=== PATIENT | female | born 1985 | race Caucasian/White ===

== ENCOUNTER 2016-02-23 19:51 | Outpatient (CLI) | payer BC ==
[~2016-02-23] VITALS: Ht 180.3 cm; Wt 78.1 kg
[2016-02-23 20:59] VITALS: Ht 180.3 cm; Wt 78.1 kg
[2016-02-23] MEDS ORDERED: PREN1TAB79 PO (20:59)
[2016-02-23 21:42] VITALS: BP 108/65; PULSE 88; RESP 20
--- NOTE | 2016-02-23 22:10 | RADRPT ---
PROCEDURE: US OB biophysical profile. CLINICAL INDICATION: decreased movements TECHNIQUE: Multiple sonographic images of the pelvis were obtained. The images were reviewed on a PACS workstation. COMPARISON: No pertinent prior examinations were submitted for comparison. FINDINGS: There is a single viable intrauterine gestation. Cardiac activity is present with 146 beats per min [place]. There is a vertex presentation. The placenta is frontal in position, grade 2 in appearance. There is a normal amount of amniotic fluid with an STEVO = 12 cm. The cervix is closed, measuring up to 2.8 cm in length. Biophysical profile: movement 2/2 tone 2/2. breathing 2/2 STEVO 2/2 Total 09/27 IMPRESSION: Normal biophysical profile. RPTAT: HIKT . .Jason Lay MD, Date Time Electronically viewed and signed by .Jason Lay MD, on 02/23/2016 22:09 .T/
--- NOTE | 2016-02-24 05:43 | TRIAGE ---
OB Triage Datetime Report Generated by CPN: 02/24/2016 05:43 Datetime: 02/23/2016 22:30 Stage of : OB Triage Labor Evaluation Frequency: Occasional Monitor Mode: External Duration (sec)2399: 40-70 Quality: Mild Pattern: Normal: <= 5 Contractions in 10 Minutes Resting Tone [place]: Relaxed Heart Rate FHR Baseline Rate: 140 Monitor Mode: External US FHR Baseline Changes: No Baseline Change Variability: Moderate 6-25 bpm Accelerations: 15X15 Decelerations: None Category: Category I Pain Assessment Pain Scale: 0 Pain Presence: None/Denies Pain Type: N/A Pain Assessment Comments: Pt continues to deny pain Datetime: 02/23/2016 22:26 Vaginal Exam Membrane Status: Intact Datetime: 02/23/2016 22:24 Stage of : OB Triage Datetime: 02/23/2016 22:00 Stage of : OB Triage Labor Evaluation Frequency: Occasional Monitor Mode: External Duration (sec)2399: 40-80 Quality: Mild Pattern: Normal: <= 5 Contractions in 10 Minutes Resting Tone [place]: Relaxed Heart Rate FHR Baseline Rate: 140 Monitor Mode: External US Variability: Moderate 6-25 bpm Accelerations: 15X15 Decelerations: None Category: Category I Datetime: 02/23/2016 21:36 Stage of : OB Triage Datetime: 02/23/2016 21:32 Stage of : OB Triage Datetime: 02/23/2016 21:17 Stage of : OB Triage Datetime: 02/23/2016 21:10 Nitrazine: Negative Datetime: 02/23/2016 21:00 Stage of : OB Triage Labor Evaluation Frequency: Occasional Monitor Mode: External Duration (sec)2399: 40-90 Quality: Mild Pattern: Normal: <= 5 Contractions in 10 Minutes Resting Tone [place]: Relaxed Heart Rate FHR Baseline Rate: 135 Monitor Mode: External US Variability: Moderate 6-25 bpm Accelerations: 15X15 Decelerations: None Category: Category I Datetime: 02/23/2016 20:50 Stage of : OB Triage Datetime: 02/23/2016 20:18 EGA: 34.0 Datetime: 02/23/2016 20:17 Stage of : OB Triage Assessment Type: Triage Maternal Assessment Level of Consciousness: Fully Conscious DTR's/Clonus: DTRs 2+; No Clonus Headache: Denies Blurred Vision: No Respiratory Effort: Unlabored; Regular Rhythm; Equal Expansion Breath Sounds, Left: Clear and Equal Breath Sounds, Right: Clear and Equal Nausea/Vomiting: Denies RUQ Epigastric Pain: Denies Lower Extremities Edema: None Degree: None Upper Extremities Edema: None Degree: None Facial Edema: None Temperature Route: Oral Fall Risk Assessment History of Falling: (0) No Secondary Diagnosis: (0) No Ambulatory Aid: (0) Bedrest/Nurse Assist IV Therapy: (0) No Gait: (0) Normal/Bedrest/Immobile Mental Status: (0) Oriented to Own Ability Fall Score: 0 Fall Risk Score Definition: No Risk: No action required Pain Assessment Pain Scale: 0 Pain Presence: None/Denies Pain Type: N/A Pain Assessment Comments: Pt denies pain at this time. Reports pain upto 6/10 with cramping about 1x/hr. Datetime: 02/23/2016 20:10 Stage of : OB Triage Monitor Mode: External Contraction Comments: [place] applied Heart Rate FHR Baseline Rate: 140 Monitor Mode: External US Comments: EFM applied Datetime: 02/23/2016 20:06 Time of Arrival: 02/23/2016 19:45 Arrived By: Ambulatory Arrived From: Home Chief Complaint: Cramping x4 days, leaking x2 days Movement: Present Contractions: Irregular Contractions: 1x/hr Rupture of Membranes: Unsure Vaginal Bleeding: None Vaginal Discharge: Present Recent Sexual Intercouse: Denies Abdominal Trauma: Not Applicable Patient Complaints: Cramping Time Provider Notified: 02/23/2016 20:50 Provider Notified: Initial Plan: EFM x2, nitrazine test
== END 2016-02-23 22:40 | disposition home or self-care (01) ==
LOC: OBT 19:51 → L-D 19:52 → OBT 19:55
PROVIDERS: ATTEND Obstetrics & Gynecology
DX: O26.893 Other specified pregnancy related conditions, third trimester (principal); O62.9 Abnormality of forces of labor, unspecified; O36.8130 Decreased fetal movements, third trimester, not applicable or unspecified; Z3A.34 34 weeks gestation of pregnancy
CPT/HCPCS: 76817; 76818; 84112; G0463

== ENCOUNTER 2016-03-27 23:24 | Inpatient (IN) | payer BC ==
[~2016-03-27] VITALS: Ht 180.3 cm; Wt 78.8 kg
[~2016-03-27 23:24] MED LIST: LACTATED RINGER'S 1,000 ML IV PRN; PREN1TAB79 PO
[2016-03-27 23:54] VITALS: Ht 180.3 cm; Wt 78.8 kg
[2016-03-27 23:55] VITALS: BP 125/78; PULSE 86; RESP 18
[2016-03-27] MEDS: LACTATED RINGER'S 1,000 ML IV SCH (23:57)
[2016-03-28] MEDS ORDERED: ACETAMINOPHEN/CODEINE #3 TAB PO PRN
[2016-03-28] MEDS ORDERED: OXYTOCIN 30 UNITS/LR 500 ML IV SCH ×2
[2016-03-28] MEDS ORDERED: IBUPROFEN 600 MG TAB PO PRN
[2016-03-28] MEDS ORDERED: BUTORPHANOL 2 MG INJ IV PRN ×2
[2016-03-28] MEDS ORDERED: LIDOCAINE 1% (MPF) 30 ML INJ INJ PRN
--- NOTE | 2016-03-28 00:39 | HP ---
Date/Time of Note Date/Time of Note DATE: 03/28/16 TIME: 00:33 OB - History Hx of Present Free Text/Dictation 30 y.o at 38w5d in active labor with intact membrane had unevenful course initial ve 5cm 70% -3 admitted for expectant management Chief Complaint: uterine contractions Estimated Due Date: Apr 05, 2016 : 1 Para: 0 Spontaneous : 0 Therapeutic : 0 Care: Good Care Ultrasounds: Normal mid trimester US Obstetrical Complications: None Medical Complications: None Past Family/Social History * Past Medical, Surgical, Family and Obstetric Histories reviewed from chart. Blood Type: A+ Rubella: immune RPR/VDRL: Negative GBS Status: Negative HBsAG: Negative OB Admission Exam Vital Signs Vital Signs Vital Signs Date Time Temp Pulse Resp B/P Pulse Ox O2 Delivery O2 Flow Rate FiO2 03/27/16 23:55 98.2 86 18 125/78 Room Air Physical Exam HEENT: WNL Heart: Rhythm Normal Lungs: Clear, Equal Abdomen: WNL Extremities: Normal Reflexes: Normal Cervical Dilatation: 5cm Effacement: 75% Station: -3 Membranes: Intact Amniotic Fluid: Unevaluable Heart Rate: 140's Accelerations: Accelerations Present Decelerations: No Decelerations Varibility: Moderate Contractions on Admission: < 5 Minutes Apart Intensity: Moderate OB Assessment/Plan Reason for admission: active labor Other Assessment: IUP 38w5d in active labor Plan: Expectant Management RONAK MARCH MD Mar 28, 2016 00:39
[2016-03-28 01:08] LABS: INR 0.97; PROTIME 12.9 Sec (12.2-14.2)
[2016-03-28 01:18] LABS: BASOPHILS % 0.2 % (0.0-2.0); EOSINOPHILS # 0.1 10^3/ul (0.0-0.5); EOSINOPHILS % 0.7 % (0.0-7.0); HEMOGLOBIN 11.8 g/dl (12.0-16.0); LYMPHOCYTES # 2.2 10^3/ul (0.8-2.9); LYMPHOCYTES % 12.4 % (15.0-51.0); MEAN CORPUSCULAR HEMOGLOBIN 29.7 pg (29.0-33.0); MEAN CORPUSCULAR HGB CONC 33.8 g/dl (32.0-37.0); MEAN CORPUSCULAR VOLUME 87.8 fl (82.0-101.0); MONOCYTE # 1.4 10^3/ul (0.3-0.9); MONOCYTES % 7.9 % (0.0-11.0); NEUTROPHIL # 14.2 10^3/ul (1.6-7.5); NEUTROPHILS % 78.8 % (39.0-77.0); PLATELET COUNT 329 10^3/UL (140-440); RED BLOOD COUNT 3.99 10^6/ul (4.20-5.40); RED CELL DISTRIBUTION WIDTH 14.1 % (11.5-14.5)
[2016-03-28 01:21] LABS: CONDITION 1
[2016-03-28] MEDS ORDERED: AMPICILLIN 2 GM/NS (PMX) 100 ML IVPB ONE (01:30)
[2016-03-28] MEDS ORDERED: FENTAnyl 2MCG/ML-ROPIV 0.2% 100 ML ONE (01:43)
[2016-03-28] MEDS ORDERED: NALOXONE (0.4 MG/ML) INJ IV PRN (02:00)
[2016-03-28] MEDS ORDERED: DIPHENHYDRAMINE 50 MG INJ IV PRN (02:00)
[2016-03-28] MEDS ORDERED: ONDANSETRON 4 MG INJ IV PRN (02:00)
[2016-03-28] MEDS: LACTATED RINGER'S 1,000 ML IV SCH ×6 (04:33→19:42)
[2016-03-28] MEDS ORDERED: AMPICILLIN 1 GM/NS (PMX) 50 ML IVPB SCH (05:00)
[2016-03-28] MEDS: FENTAnyl 2MCG/ML-ROPIV 0.2% 100 ML BAG EPI SCH ×2 (11:36→19:18)
--- NOTE | 2016-03-28 22:12 | LDN ---
Date/Time of Note Date/Time of Note DATE: 03/28/16 TIME: 22:08 Delivery Summary Vacuum assisted vaginal delivery over 5 pulls over one UC. Delivered a viable baby girl weighing 3830 grams or 8# 7 oz, 21" long, and with Apgars of 8/9. Assisted Vaginal Delivery: Vacuum Placenta Delivered: Spontaneously Meconium: none Perineum intact?: No Perineal laceration: 2 (degree) Perineal laceration repair: Second degree perineal laceration repaired with 2-0 chromic. Anesthesia type: Epidural Estimated blood loss: 200 Sponge & Needle done & correct: Yes All needle counts correct: Yes Any foreign bodies felt in the: No (vagina) Problems: Infant Delivery Information Sex Infant Sex: female Apgars 1 Minute: 8 5 Minute: 9 Suctioning Nose & mouth suctioned at mary: Yes Delee suction performed: No Umbilical Cord Umbilical cord with: 3 Vessels Cord presentations: no nuchal cord Cord Blood was obtained: Yes Mother & Baby Disposition Disposition Mom & Baby to Maternity; Good: Yes Baby to NICU: No SCAR CASTELLANOS MD Mar 28, 2016 22:12
[2016-03-28] MEDS ORDERED: MISOPROSTOL 200 MCG TAB PR PRN ×2 (22:30)
[2016-03-28] MEDS ORDERED: ACETAMINOPHEN 325 MG TAB PO PRN (22:30)
[2016-03-28] MEDS ORDERED: WITCH HAZEL/GLYCERIN PAD PR PRN (22:30)
[2016-03-28] MEDS ORDERED: METHYLERGONOVINE 0.2 MG INJ IM PRN ×2 (22:30)
[2016-03-28] MEDS ORDERED: OXYCODONE/ASPIRIN (4.88/325) TAB PO PRN (22:30)
[2016-03-28] MEDS ORDERED: OXYTOCIN 30 UNITS/LR 500 ML IV PRN ×2 (22:30)
[2016-03-28] MEDS ORDERED: LANOLIN 7 GM TUBE TOP PRN (22:30)
[2016-03-28] MEDS ORDERED: CARBOPROST 250 MCG INJ IM PRN ×2 (22:30)
[2016-03-29 00:35] VITALS: BP 120/59; PULSE 105; RESP 19
[2016-03-29] MEDS: IBUPROFEN 600 MG TAB PO SCH ×5 (01:26→23:36)
[2016-03-29] MEDS: LACTATED RINGER'S 1,000 ML IV* SCH ×3 (02:05→14:04)
[2016-03-29 04:00] VITALS: BP 109/66; PULSE 71; RESP 20
[2016-03-29 08:00] VITALS: BP 99/57; PULSE 69; RESP 17
[2016-03-29 08:44] LABS: HEMATOCRIT 27.4 % (37.0-47.0); HEMOGLOBIN 9.3 g/dl (12.0-16.0); MEAN CORPUSCULAR HEMOGLOBIN 30.1 pg (29.0-33.0); MEAN CORPUSCULAR HGB CONC 34.1 g/dl (32.0-37.0); MEAN CORPUSCULAR VOLUME 88.5 fl (82.0-101.0); MEAN PLATELET VOLUME 7.7 fl (7.4-10.4); PLATELET COUNT 243 10^3/UL (140-440); RED CELL DISTRIBUTION WIDTH 14.3 % (11.5-14.5); UNCORRECTED WBC 32.4 10^3/ul (4.8-10.8); WHITE BLOOD COUNT 32.4 10^3/ul (4.8-10.8)
[2016-03-29 09:02] LABS: CONDITION 1; LH ANALYZER COMMENTS 1; SUSPECT 1
[2016-03-29 10:47] LABS: LYMPHOCYTES # 5.5 10^3/ul (0.8-2.9); MONOCYTE # 2.6 10^3/ul (0.3-0.9); NEUTROPHIL # 22.4 10^3/ul (1.6-7.5)
[2016-03-29 12:30] VITALS: BP 119/69; PULSE 92; RESP 18
[2016-03-29 16:00] VITALS: BP 102/66; PULSE 80; RESP 17
[2016-03-29] MEDS ORDERED: DIBUCAINE 1% 30 GM OINT TOP PRN (18:00)
[2016-03-29 20:15] VITALS: BP 115/76; PULSE 75; RESP 20
--- NOTE | 2016-03-29 23:51 | QN ---
Documentation Comment PPD #1 s/p vacuum assisted VD. Pt doing well and in good spirits. Baby is , best when using nipple kamara due to flat nipples. No fever, chills, nausea, vomiting. T= 97.6. BP 102/66. Breast are soft, with slight colostrum. Abdomen soft, NT. Fundus is firm and NT. Lochia moderate. Ext NT, 1+ edema. WBC 32K (was 18K on admit). Bands 6%. Hgb 9.3. Plan: repeat CBC in AM. If WBC persistently high will initiate ABX. Continue assistance with . SCAR CASTELLANOS MD Mar 29, 2016 23:51
[2016-03-30 04:00] VITALS: BP 116/69; PULSE 76; RESP 20
[2016-03-30] MEDS: IBUPROFEN 600 MG TAB PO SCH ×3 (05:50→17:49)
[2016-03-30 08:36] LABS: BASOPHILS % 0.2 % (0.0-2.0); EOSINOPHILS # 0.3 10^3/ul (0.0-0.5); EOSINOPHILS % 1.6 % (0.0-7.0); HEMOGLOBIN 9.1 g/dl (12.0-16.0); LYMPHOCYTES # 2.9 10^3/ul (0.8-2.9); LYMPHOCYTES % 15.8 % (15.0-51.0); MEAN CORPUSCULAR HEMOGLOBIN 29.6 pg (29.0-33.0); MEAN CORPUSCULAR HGB CONC 33.5 g/dl (32.0-37.0); MEAN CORPUSCULAR VOLUME 88.4 fl (82.0-101.0); MEAN PLATELET VOLUME 7.9 fl (7.4-10.4); MONOCYTE # 1.8 10^3/ul (0.3-0.9); MONOCYTES % 9.4 % (0.0-11.0); NEUTROPHIL # 13.6 10^3/ul (1.6-7.5); PLATELET COUNT 250 10^3/UL (140-440); RED BLOOD COUNT 3.05 10^6/ul (4.20-5.40); RED CELL DISTRIBUTION WIDTH 14.6 % (11.5-14.5); UNCORRECTED WBC 18.7 10^3/ul (4.8-10.8); WHITE BLOOD COUNT 18.7 10^3/ul (4.8-10.8)
[2016-03-30 08:40] LABS: CONDITION 1; LH ANALYZER COMMENTS 1
[2016-03-30 08:50] VITALS: BP 117/65; PULSE 74; RESP 18
[2016-03-30] MEDS ORDERED: DIPHTH/TET/ACEL PERTUSS (ADULT) 0.5 ML VIAL IM* ONE (09:00)
[2016-03-30 16:00] VITALS: BP 112/79; PULSE 89; RESP 17
--- NOTE | 2016-03-30 19:25 | PD.PPDC ---
LIFTER Discharge Instruction Condition Patient Condition: Good Diet Diet: Resume Regular Diet Activity/Restrictions Activity: Normal Activity May Shower Restrictions: No Sexual Activity Nothing in the Vagina No [place] No Tampons, douche Follow-up Follow-up with Physician: 6, Week/Weeks Return to clinic for [facility]ANT Instructions: Fever greater than 101 Chills Worsening abdominal pain Excessive Vaginal Bleeding OB Instructions: Breast Tenderness Depression SCAR CASTELLANOS MD Mar 30, 2016 19:25
--- NOTE | 2016-03-30 19:27 | DS ---
Date/Time of Note Date/Time of Note DATE: 03/30/16 TIME: 19:26 Obstetrical Discharge Record Final Diagnosis Final Diagnosis: Term delivered Vaginal Delivery Obstetrical Delivery: Vacuum Extraction, Laceration, Repaired Complications Augmentation: No Induction: No Condition on Discharge Physical Assessment Last Vitals: T=98.0 BP 112/79 Voiding: Yes Bowel Movement: Yes Breast: Filling Fundus: Firm Calf Tenderness: No Patient Condition: Good SCAR CASTELLANOS MD Mar 30, 2016 19:27
== END 2016-03-30 20:30 | disposition home or self-care (01) | DRG 775 ==
LOC: OBT 23:24 → L-D 23:25 → OBT 03-28 00:05 → L-D 03-28 00:05 → PP1 03-29 00:50
PROVIDERS: ADMIT Obstetrics & Gynecology; ATTEND Obstetrics & Gynecology
PROC: 10E0XZZ Delivery of Products of Conception, External Approach (ICD-10-PCS; principal; 2016-03-28)
PROC: 0KQM0ZZ Repair Perineum Muscle, Open Approach (ICD-10-PCS; 2016-03-28)
DX: O70.1 Second degree perineal laceration during delivery (principal); Z37.0 Single live birth; Z3A.38 38 weeks gestation of pregnancy
CPT/HCPCS: 36415; 62319; 85025; 85610; 85730; 86592; 86703; 86900; 86901; 87340; 90715; 96360; 99464; A4310; G0463; J2405; J2590; J3010; J7120